=== PATIENT | female | born 1935 | race Caucasian/White ===

== ENCOUNTER 2017-08-29 17:56 | Emergency (ER) | payer BC, MEDICARE ==
[2015-08-01 12:44] VITALS: Ht 162.6 cm; Wt 90.7 kg
[~2017-08-29] VITALS: Ht 162.6 cm; Wt 90.7 kg
[~2017-08-29 17:56] MED LIST: ALLO100T70 PO; AMOX-559 PO; AREDS 2; ASPI81TA94 PO; CALC-18 PO; CARDIA XT PO; CHOL200021 PO; CLON-388 PO; CYCL1DRO6 OP; DILT-104 PO; DILT-88 PO; DOCU-416 PO; ENOX80DI8 SQ; GABA-490 PO; GLUC-198 PO; HYDR-385 PO; HYDR-4309 PO; IBRU140C PO; LEVO25TA57 PO; LEVO50TA86 PO; LOR5/325 PO; MAGN400C PO; METF500T4 PO; METO25TA91 PO; NITR-105 PO; OMEP-125 PO; OMEP-218 PO; ONDA8TAB91 PO; OXYC-373 PO; PHEN200T32 PO; SERT-1 PO; SIMV-54 PO; SULF-198 PO; VIT1CAPS9 PO; WARF-1 PO; WARF4TAB54 PO
[2017-08-29] MEDS ORDERED: NITR-105 PO (18:19)
--- NOTE | 2017-08-29 18:36 | ER Report ---
History and Physical Time Seen By MD: 18:19 Hx. of Stated Complaint: pt presents with hx of stumbling on a curb and falling against car breaking l shoulder. Pt was seen in [facility], and sent here HPI/ROS CHIEF COMPLAINT: Left shoulder injury HISTORY OF PRESENT ILLNESS: This is an 82-year-old female who presents to the emergency department for a left shoulder injury. The patient was evaluated at the [facility] and sent to the emergency department for further evaluation. The clinic said that she did have a left humeral fracture and try to consult with orthopedic today and were instructed to send the patient to the emergency department for further evaluation. Patient states that she tripped today and fell hitting her shoulder against a car. Patient ate she has left anterior shoulder pain, left humeral pain, and left elbow pain. Patient denies numbness or tingling. Patient has no other complaints at this time no nausea, vomiting, diarrhea, aches or chills, no chest pain or shortness of breath. REVIEW OF SYSTEMS: Constitutional: No fever, no chills. Eyes: No discharge. ENT: No sore throat. Cardiovascular: No chest pain, no palpitations. Respiratory: No cough, no shortness of breath. Gastrointestinal: No abdominal pain, no vomiting. Genitourinary: No hematuria. Musculoskeletal: As above. Skin: No rashes. Neurological: No headache. Allergies: Coded Allergies: adhesive tape (Verified Allergy, Mild, 08/29/17) Rash Sulfa (Sulfonamide Antibiotics) (Verified Allergy, Unknown, 08/29/17) cephalexin (Verified Allergy, Unknown, 08/29/17) clarithromycin (Verified Allergy, Unknown, 08/29/17) neomycin (Verified Allergy, Unknown, 08/29/17) Home Meds Active Scripts Hydrocodone Bit/Acetaminophen (HYDROCODON-ACETAMINOPHEN 5-325) 1 Each Tablet, 1 EACH PO Q4-6H, #20 TAB Prov:EDGARD SUNGP-BC 08/29/17 Allopurinol (ALLOPURINOL) 100 Mg Tablet, 100 MG PO QDAY, #90 TAB 3 Refills TAKE 1 TABLET BY MOUTH EVERY DAY Prov:PAUL BUCKNER SURVEYOR MINE-BC, ONC 07/11/17 Ibrutinib (Imbruvica) 140 Mg Capsule, 280 MG PO DAILY, #60 CAP Prov:PAUL BUCKNER SURVEYOR MINE-BC, ONC 09/05/16 Reported Medications Nitrofurantoin Monohyd/M-Cryst (MACROBID 100 MG CAPSULE) 100 Mg Capsule, 100 MG PO BID, CAPSULE 08/29/17 Hydrocodone Bit/Acetaminophen (HYDROCODON-ACETAMINOPHEN 5-325) 1 Each Tablet, 1 EACH PO Q6H Y for PAIN, #20 TAB 05/24/17 Warfarin Sodium (COUMADIN) 5 Mg Tablet, 5 MG PO QDAY 05/21/17 Diltiazem Hcl (DILT-XR) 240 Mg Cap.er.deg, 240 MG PO HS 05/21/17 Vit C/E/Zn/Coppr/Lutein/Zeaxan (Preservision Areds 2 Softgel) 1 Each Capsule, 1 TAB PO DAILY 05/21/17 Cyclosporine (RESTASIS) 1 Each Droperette, 1 EACH OP BID 11/16/16 Levothyroxine Sodium (LEVOTHYROXINE SODIUM) 50 Mcg Tablet, 50 MCG PO QDAY, TAB 11/16/16 Simvastatin (SIMVASTATIN) 40 Mg Tablet, 40 MG PO QHS, TAB 08/01/15 Omeprazole (OMEPRAZOLE) 20 Mg Capsule.dr, 1 CAP PO QDAY, CAP 07/13/15 Glucosa Ambrose 2KCL/Chondroitin Ambrose (GLUCOSAMINE & CHONDROITIN CAP) 1 Each Capsule, 1 EACH PO, CAPSULE 07/17/14 Gabapentin (NEURONTIN) 300 Mg Capsule, 300 MG PO BID, CAPSULE 07/17/14 Sertraline Hcl (ZOLOFT) 50 Mg Tablet, 1 TAB PO QDAY TAKE ONE TABLET BY MOUTH EVERY DAY 07/17/14 Discontinued Reported Medications Sulfamethoxazole/Trimet 800-160 Mg Tab (BACTRIM DS TABLET) 1 Each Tablet, 1 TAB PO Q12H, #14 TAB 05/24/17 Phenazopyridine Hcl (PHENAZOPYRIDINE HCL) 200 Mg Tablet, 200 MG PO TID Y for BURNING WITH URINATION, #20 TAB 05/24/17 Docusate Sodium (COLACE) 100 Mg Capsule, 100 MG PO BID, #30 CAPSULE 05/24/17 Past Medical/Surgical History She has a past medical surgical history of A. fib, hypercholesterolemia, uses oxygen at night, GERD, frequent UTIs, lupus, arthritis, chronic back pain, pinched nerves and back, upper and lower dentures, wears glasses, CLL, history of blood clots on Coumadin, brain bleed, anxiety, thoracotomy, upper left lobe removed, heart catheterization, stents 3, appendectomy, hysterectomy, bilateral total hips, cataracts. Reviewed Nurses Notes: Yes Hx Smoking: Yes (SMOKED <1 PPD X 12 YEARS, QUIT .) Smoking Status: Former Smoker Hx Substance Use Disorder: No Hx Alcohol Use: No Constitutional Vital Sign - Last 24 Hours 08/29/17 08/29/17 08/29/17 08/29/17 18:45 19:00 19:15 19:30 Pulse 80 86 87 85 B/P (MAP) 150/82 (104) 147/98 (114) Pulse Ox 97 97 97 97 08/29/17 08/29/17 08/29/17 08/29/17 20:00 20:30 20:30 21:00 Pulse 89 B/P (MAP) 136/69 (91) 132/74 (93) 132/74 (93) 137/107 (117) Pulse Ox 97 Physical Exam General Appearance: The patient is alert, has no immediate need for airway protection and no signs of toxicity. Eyes: Pupils equal and round no pallor or injection. ENT, Mouth: Mucous membranes are moist. Respiratory: There are no retractions, lungs are clear to auscultation. Cardiovascular: Regular rate and rhythm, no murmurs, clicks or rubs. Gastrointestinal: Abdomen is soft and non tender, no masses, bowel sounds normal. Neurological: Alert and oriented 4. Moving all extremities. Following all commands. No focal neuro deficits. Skin: Warm and dry, no rashes. Musculoskeletal: Neck is supple non tender. Extremities Left anterior shoulder pain, left proximal humerus pain, no crepitus or hematomas or open injury, generalized left elbow pain. CMS intact distal to the injury. DIFFERENTIAL DIAGNOSIS: After history and physical exam differential diagnosis was considered for shoulder dislocation, shoulder separation, humerus fracture, shoulder strain, elbow strain, contusion. Medical Decision Making Data Points Laboratory Hematology Test 08/12/14 00:00 11/14/16 00:00 Neutrophils # 1.5 TH/MM3 (1.1-6.5) Hematocrit 35.1 % (14.5-18.0) Hemoglobin 12 G/DL (14.5-18) Platelet Count 105 TH/MM3 (127-361) White Blood Count 14.9 TH/MM3 (3.2-9.9) Albumin 3.90 G/DL (3.2-4.6) Alkaline Phosphatase 79 IU/L (44-105) Alanine Aminotransferase (ALT/SGPT) 10 IU/L (0-44) Aspartate Amino Transf (AST/SGOT) 14 IU/L (0-40) Blood Urea Nitrogen 24 MG/DL (10-36) Calcium Level 9.5 MG/DL (8.6-10.2) Chloride Level 104 MMOL/L (97-108) Carbon Dioxide Level 23 MMOL/L (19-28) Creatinine 1.10 MG/DL (0.76-1.27) Glucose Level 123 MG/DL (65-99) Potassium Level 4.3 MMOL/L (3.5-5.2) Sodium Level 139 MMOL/L (136-145) Total Protein 6.0 G/DL (6.0-8.5) Total Bilirubin 0.3 MG/DL (0.0-1.2) Chemistry Test 08/12/14 00:00 11/14/16 00:00 Neutrophils # 1.5 TH/MM3 (1.1-6.5) Hematocrit 35.1 % (14.5-18.0) 11.5 % (14.5-18.0) Hemoglobin 12 G/DL (14.5-18) 36.2 G/DL (14.5-18) Platelet Count 105 TH/MM3 (127-361) 174 TH/MM3 (127-361) White Blood Count 14.9 TH/MM3 (3.2-9.9) 4.21 TH/MM3 (3.2-9.9) Albumin 3.90 G/DL (3.2-4.6) Alkaline Phosphatase 79 IU/L (44-105) Alanine Aminotransferase (ALT/SGPT) 10 IU/L (0-44) Aspartate Amino Transf (AST/SGOT) 14 IU/L (0-40) Blood Urea Nitrogen 24 MG/DL (10-36) Calcium Level 9.5 MG/DL (8.6-10.2) Chloride Level 104 MMOL/L (97-108) Carbon Dioxide Level 23 MMOL/L (19-28) Creatinine 1.10 MG/DL (0.76-1.27) Glucose Level 123 MG/DL (65-99) Potassium Level 4.3 MMOL/L (3.5-5.2) Sodium Level 139 MMOL/L (136-145) Total Protein 6.0 G/DL (6.0-8.5) Total Bilirubin 0.3 MG/DL (0.0-1.2) EKG/Imaging Imaging FACILITY: [facility] [place] PATIENT NAME: Jessi De Leon : 1935 MR: [id number] V: [id number] EXAM DATE: ORDERING PHYSICIAN: EDGARD SUNG TECHNOLOGIST: Location: [facility] [place] Patient: Jessi De Leon : 1935 Visit/Account:[id number] Date of Sevice: 08/29/2017 INDICATION: evaluate for fx. Fall. Left arm pain. DATE: 08/29/2017 8:37 PM. TECHNIQUE: ELBOW 2 VIEW LEFT, HUMERUS LEFT, SHOULDER MIN 2 VIEWS LEFT COMPARISON: None FINDINGS: Left elbow: Positioning is suboptimal. There is no conspicuous fracture. Left humerus: Oblique fracture of the proximal humerus is comminuted extending from the diaphysis to the surgical neck. The proximal fragments are mildly displaced. Left shoulder: No glenohumeral dislocation. No widening at the AC joint or at the coracoclavicular interval. Bone density is diffusely decreased. Multiple surgical clips are noted at the left hilum. IMPRESSION: Comminuted and displaced proximal humeral fracture as above. Report Dictated By: Yesenia Agustin MD at 08/29/2017 8:37 PM Report E-Signed By: Yesenia Agustin MD at 08/29/2017 8:41 PM WSN:[id number] FACILITY: [facility] [place] PATIENT NAME: Jessi De Leon : 1935 MR: [id number] V: [id number] EXAM DATE: ORDERING PHYSICIAN: EDGARD SUNG TECHNOLOGIST: Location: [facility] [place] Patient: Jessi De eLon : 1935 Visit/Account:[id number] Date of Sevice: 08/29/2017 INDICATION: evaluate for fx. Fall. Left arm pain. DATE: 08/29/2017 8:37 PM. TECHNIQUE: ELBOW 2 VIEW LEFT, HUMERUS LEFT, SHOULDER MIN 2 VIEWS LEFT COMPARISON: None FINDINGS: Left elbow: Positioning is suboptimal. There is no conspicuous fracture. Left humerus: Oblique fracture of the proximal humerus is comminuted extending from the diaphysis to the surgical neck. The proximal fragments are mildly displaced. Left shoulder: No glenohumeral dislocation. No widening at the AC joint or at the coracoclavicular interval. Bone density is diffusely decreased. Multiple surgical clips are noted at the left hilum. IMPRESSION: Comminuted and displaced proximal humeral fracture as above. Report Dictated By: Yesenia Agustin MD at 08/29/2017 8:37 PM Report E-Signed By: Yesenia Agustin MD at 08/29/2017 8:41 PM WSN:[id number] FACILITY: [facility] [place] PATIENT NAME: Jessi De Leon : 1935 MR: [id number] V: [id number] EXAM DATE: ORDERING PHYSICIAN: EDGARD SUNG TECHNOLOGIST: Location: [facility] [place] Patient: Jessi De Leon : 1935 Visit/Account:[id number] Date of Sevice: 08/29/2017 INDICATION: evaluate for fx. Fall. Left arm pain. DATE: 08/29/2017 8:37 PM. TECHNIQUE: ELBOW 2 VIEW LEFT, HUMERUS LEFT, SHOULDER MIN 2 VIEWS LEFT COMPARISON: None FINDINGS: Left elbow: Positioning is suboptimal. There is no conspicuous fracture. Left humerus: Oblique fracture of the proximal humerus is comminuted extending from the diaphysis to the surgical neck. The proximal fragments are mildly displaced. Left shoulder: No glenohumeral dislocation. No widening at the AC joint or at the coracoclavicular interval. Bone density is diffusely decreased. Multiple surgical clips are noted at the left hilum. IMPRESSION: Comminuted and displaced proximal humeral fracture as above. Report Dictated By: Yesenia Agustin MD at 08/29/2017 8:37 PM Report E-Signed By: Yesenia Agustin MD at 08/29/2017 8:41 PM WSN:[id number] ED Course/Re-evaluation ED Course The patient was admitted to room 3 to history and physical were obtained. Differential diagnoses were considered. IVs were attempted which were unsuccessful. 4 mg IM morphine was given, 4 mg ODT Zofran was given. Repeat images of the left humerus were obtained this time we're able to get a 2 view left shoulder was obtained as well as a left elbow. The patient has a comminuted and displaced proximal humeral fracture. I did review the results with the patient and her son. I did speak with Dr. Rodriguez from [facility] as noted below. Also noted below was the interaction between the patient, her son and myself. The patient's son is very upset that we are not repaired the injury surgically or admit the patient to the hospital. I did explain to him several times that these injuries are splinted with a sling and treated with pain management and follow-up with [facility]. Dr. Rodriguez said that they will contact the patient for a follow-up. I did speak with the son again he said he is taking his mother to his sisters house in [place] and see if they can get her into [facility]. The son was still upset at the time of discharge. The patient is sitting up alert no complaints at this time and ready for discharge. The patient had no other questions or concerns at this time and was discharged with her son. The patient was sent home with a take home pack for Percocet, one Percocet to take in the emergency department and a prescription for Percocet was sent with the patient. 08/29/2017 9:10:07 pm I did speak with Dr. Rodriguez from [facility] regarding the patient's case, he was able to view the images we discussed the case, he stated that these are non-operable injuries. He said place her in a sling and provide her with pain medications and he will have her follow-up in his office next week. I did discuss this with the patient and her son. The son became very agitated and started cussing about no surgery and not admitting the patient. I did explain to him that unfortunately we cannot admit her. He was still agitated. He was upset that we dont cast the arm, no surgery, I did explain to him again that these injuries do not require casting, splinting or surgery. I did tell them both I can send her home with pain medications, the patient states she has taken Percocet before. The son remains agitated. Decision to Disposition Date: Aug 29, 2017 Decision to Disposition Time: 21:23 Depart Departure Latest Vital Signs Vital Signs Date Time Temp Pulse Resp B/P (MAP) Pulse Ox O2 Delivery O2 Flow Rate FiO2 08/29/17 21:00 89 137/107 (117) 97 Impression: Primary Impression: Fracture of proximal end of left humerus Condition: Improved Disposition: HOME OR SELF-CARE Referrals: DRISS VENCES MD (PCP) TOR RODRIGUEZ MD New Scripts Oxycodone Hcl/Acetaminophen (PERCOCET 5-325 MG TABLET) 1 Each Tablet 1 EACH PO Q4-6H Y for PAIN, #20 TAB Prov: EDGARD SUNG SURVEYOR MINE-BC 08/29/17 Hydrocodone Bit/Acetaminophen (HYDROCODON-ACETAMINOPHEN 5-325) 1 Each Tablet 1 EACH PO Q4-6H, #20 TAB Prov: EDGARD SUNG SURVEYOR MINE-BC 08/29/17 Patient Instructions: Proximal Humerus Fracture (ED) Additional Instructions: Drink plenty of fluids. Get plenty of rest. Continue current medications. Keep the sling on until you follow up with Dr. Rodriguez from [facility] next week. Take the pain medications as indicated. With the pain medications please take a stool softener to prevent constipation. May return to the ED for worsening symptoms. Problem Qualifiers Primary Impression: Fracture of proximal end of left humerus Encounter type: initial encounter Fracture type: closed Fracture morphology : unspecified fracture morphology Qualified Codes: S42.202A - Unspecified fracture of upper end of left humerus, initial encounter for closed fracture EDGARD SUNG SURVEYOR MINE-BC Aug 29, 2017 18:36
[2017-08-29] MEDS ORDERED: MORPHINE 4 MG/ML SYR IVP ONE (18:45)
[2017-08-29] MEDS ORDERED: ONDANSETRON 4 MG/2 ML VIAL IVP ONE (18:45)
[2017-08-29] MEDS ORDERED: ONDANSETRON 4 MG ODT TH SL ONE (19:05)
[2017-08-29] MEDS ORDERED: MORPHINE 4 MG/ML SYR IM ONE (19:05)
[2017-08-29] MEDS ORDERED: ONDANSETRON 4 MG ODT TABDP SL ONE (19:11)
--- NOTE | 2017-08-29 20:46 | RADIOLOGY IMAGING REPORT ---
FACILITY: [facility] [place] PATIENT NAME: Jessi De Leon : 1935 MR: [id number] V: [id number] EXAM DATE: ORDERING PHYSICIAN: EDGARD SUNG TECHNOLOGIST: Location: [facility] Patient: Jessi De Leon : 1935 Visit/Account:[id number] Date of Sevice: 08/29/2017 INDICATION: evaluate for fx. Fall. Left arm pain. DATE: 08/29/2017 8:37 PM. TECHNIQUE: ELBOW 2 VIEW LEFT, HUMERUS LEFT, SHOULDER MIN 2 VIEWS LEFT COMPARISON: None FINDINGS: Left elbow: Positioning is suboptimal. There is no conspicuous fracture. Left humerus: Oblique fracture of the proximal humerus is comminuted extending from the diaphysis to the surgical neck. The proximal fragments are mildly displaced. Left shoulder: No glenohumeral dislocation. No widening at the AC joint or at the coracoclavicular in terval. Bone density is diffusely decreased. Multiple surgical clips are noted at the left hilum. IMPRESSION: Comminuted and displaced proximal humeral fracture as above. Report Dictated By: Yesenia Agustin MD at 08/29/2017 8:37 PM Report E-Signed By: Yesenia Agustin MD at 08/29/2017 8:41 PM WSN:[id number]
--- NOTE | 2017-08-29 20:46 | RADIOLOGY IMAGING REPORT ---
FACILITY: [facility] PATIENT NAME: Jessi De Leon : 1935 MR: [id number] V: [id number] EXAM DATE: ORDERING PHYSICIAN: EDGARD SUNG TECHNOLOGIST: Location: [facility] Patient: Jessi De Leon : 1935 Visit/Account:[id number] Date of Sevice: 08/29/2017 INDICATION: evaluate for fx. Fall. Left arm pain. DATE: 08/29/2017 8:37 PM. TECHNIQUE: ELBOW 2 VIEW LEFT, HUMERUS LEFT, SHOULDER MIN 2 VIEWS LEFT COMPARISON: None FINDINGS: Left elbow: Positioning is suboptimal. There is no conspicuous fracture. Left humerus: Oblique fracture of the proximal humerus is comminuted extending from the diaphysis to the surgical neck. The proximal fragments are mildly displaced. Left shoulder: No glenohumeral dislocation. No widening at the AC joint or at the coracoclavicular in terval. Bone density is diffusely decreased. Multiple surgical clips are noted at the left hilum. IMPRESSION: Comminuted and displaced proximal humeral fracture as above. Report Dictated By: Yesenia Agustin MD at 08/29/2017 8:37 PM Report E-Signed By: Yesenia Agustin MD at 08/29/2017 8:41 PM WSN:[id number]
--- NOTE | 2017-08-29 20:47 | RADIOLOGY IMAGING REPORT ---
[place] [facility] [place] NAME: Jessi De Leon : 1935 MR: [id number] V: [id number] EXAM DATE: ORDERING PHYSICIAN: EDGARD SUNG TECHNOLOGIST: Location: [facility] Patient: Jessi De Leon : 1935 Visit/Account:[id number] Date of Sevice: 08/29/2017 INDICATION: evaluate for fx. Fall. Left arm pain. DATE: 08/29/2017 8:37 PM. TECHNIQUE: ELBOW 2 VIEW LEFT, HUMERUS LEFT, SHOULDER MIN 2 VIEWS LEFT COMPARISON: None FINDINGS: Left elbow: Positioning is suboptimal. There is no conspicuous fracture. Left humerus: Oblique fracture of the proximal humerus is comminuted extending from the diaphysis to the surgical neck. The proximal fragments are mildly displaced. Left shoulder: No glenohumeral dislocation. No widening at the AC joint or at the coracoclavicular in terval. Bone density is diffusely decreased. Multiple surgical clips are noted at the left hilum. IMPRESSION: Comminuted and displaced proximal humeral fracture as above. Report Dictated By: Yesenia Agustin MD at 08/29/2017 8:37 PM Report E-Signed By: Yesenia Agustin MD at 08/29/2017 8:41 PM WSN:[id number]
[2017-08-29] MEDS ORDERED: HYDR-385 PO (21:27)
[2017-08-29] MEDS ORDERED: ACET/HYDROC 5/325MG TH ER ONLY 2 TAB/BOTTLE PO ONE (21:45)
[2017-08-29] MEDS ORDERED: APAP/HYDROCODONE 325/5 TAB PO ONE (21:45)
[2017-08-29 22:00] VITALS: BP 140/92
[2017-08-29] MEDS ORDERED: oxyCODONE/ACETAMIN 5/325MG TH 2 TAB/BOTTLE PO ONE (22:00)
[2017-08-29] MEDS ORDERED: OXYC-865 PO (22:09)
[2017-08-30] MEDS ORDERED: ONDANSETRON 4 MG ODT TH SL ONE (04:40)
== END 2017-08-29 22:12 | disposition home or self-care (01) ==
LOC: ER 18:30
DX: S42.202A Unspecified fracture of upper end of left humerus, initial encounter for closed fracture (principal); W18.30XA Fall on same level, unspecified, initial encounter
CPT/HCPCS: 73030; 73060; 73070; 96372; 99284; A9270; J2270; Q0162; S0119